=== PATIENT | female | born 1960 | race Caucasian/White ===

== ENCOUNTER → 2021-01-24 | Outpatient (CLI) | payer OTHER ==
--- NOTE | 2021-01-24 10:36 | RAD ---
EXAM: Chest, 2 views. HISTORY: Invasive ductal carcinoma. COMPARISON: None. FINDINGS: 2 views of the chest are obtained. There is no infiltrate, pleural effusion or pneumothorax . The heart is normal in size. There are surgical clips within the left breast and axilla. There are chronic appearing interstitial changes. IMPRESSION: No acute pulmonary finding. Electronically signed by: Keshia Martin MD (01/24/2021 10:33 AM) [id number]
== END ==
LOC: RAD 09:36
PROVIDERS: ATTEND Radiology Radiation Oncology
DX: C50.012 Malignant neoplasm of nipple and areola, left female breast (principal)
CPT/HCPCS: 71046

== ENCOUNTER → 2021-02-13 | Outpatient (CLI) | payer OTHER | LOC: CT 12:05 | PROVIDERS: ATTEND Radiology Radiation Oncology | DX: Z51.0 Encounter for antineoplastic radiation therapy (principal); C50.012 Malignant neoplasm of nipple and areola, left female breast | CPT/HCPCS: 76380 ==